=== PATIENT | female | born 1980 | race Hispanic/Latino ===

== ENCOUNTER 2018-02-04 12:01 | Emergency (ER) | payer BC ==
[2018-02-04 12:05] VITALS: BMI 26.7
--- NOTE | 2018-02-04 12:53 | ED PDOC ---
Addendum entered and electronically signed by Helga Valero PA 02/04/18 15:46: Addendum Addendum: 02/04/18 15:46 US : 8 weeks 1 day FHR 138 single live IUP Original Note: HPI: Abdomen Time Seen by Provider: 02/04/18 12:51 Chief Complaint (Nursing): Abdominal Pain Chief Complaint (Provider): vaginal bleeding History Per: Patient (37 y/o female 8 weeks gestational here for bright blood spotting noted today that resolved other course of day. Denies any abdominal pain. Sent by Dr. Sanchez for evaluation.) Past Medical History Reviewed: Historical Data, Nursing Documentation, Vital Signs Vital Signs: Last Vital Signs Temp 98.9 F 02/04/18 12:05 Pulse 88 02/04/18 12:05 Resp 17 02/04/18 12:05 BP 144/94 H 02/04/18 12:05 Pulse Ox 99 02/04/18 12:05 - Family History Family History: States: No Known Family Hx - Allergies Allergies/Adverse Reactions: Allergies Allergy/AdvReac Type Severity Reaction Status Date / Time No Known Allergies Allergy Verified 02/04/18 12:17 Review of Systems ROS Statement: Except As Marked, All Systems Reviewed And Found Negative Physical Exam - Reviewed Nursing Documentation Reviewed: Yes Vital Signs Reviewed: Yes - Physical Exam Appears: Positive for: Well, Non-toxic, No Acute Distress Head Exam: Positive for: ATRAUMATIC, NORMAL INSPECTION, NORMOCEPHALIC Skin: Positive for: Normal Color, Warm, DRY Eye Exam: Positive for: EOMI, Normal appearance, PERRL ENT: Positive for: Normal ENT Inspection Neck: Positive for: Normal, Painless ROM Cardiovascular/Chest: Positive for: Regular Rate, Rhythm Respiratory: Positive for: CNT, Normal Breath Sounds Gastrointestinal/Abdominal: Positive for: Normal Exam, Soft Back: Positive for: Normal Inspection Extremity: Positive for: Normal ROM Neurologic/Psych: Positive for: Alert, Oriented - Laboratory Results Result Diagrams: 02/04/18 13:40 02/04/18 13:40 - ECG O2 Sat by Pulse Oximetry: 99 Disposition - Clinical Impression Clinical Impression: Threatened miscarriage - Patient ED Disposition Is Patient to be Admitted: No - Disposition Disposition: Routine/Home Disposition Time: 15:45 Condition: FAIR Instructions: Threatened Miscarriage (DC)
[2018-02-04 14:07] LABS: BASO % 0.3 % (0.0-2.0); EOS % 0.1 % (0.0-4.0); HEMOGLOBIN 15.5 g/dL (12.0-16.0); LYMPH # 1.1 K/uL (1.0-4.3); LYMPH % 14.8 % (20.0-40.0); MEAN CELL VOLUME 90.9 fl (81.0-99.0); MEAN CORPUSCULAR HEMOGLOBIN 32.1 pg (27.0-31.0); MEAN CORPUSCULAR HGB CONC 35.4 g/dL (33.0-37.0); MEAN PLATELET VOLUME 8.8 fl (7.2-11.7); MONO # 0.5 K/uL (0.0-0.8); MONO % 6.1 % (0.0-10.0); NEUT # 5.8 K/uL (1.8-7.0); NEUT % 78.7 % (50.0-75.0); NRBC % 0.1 % (0.0-0.0); RBC 4.82 Mil/uL (3.80-5.20); RED CELL DISTRIBUTION WIDTH 12.5 % (11.5-14.5); WHITE BLOOD COUNT 7.4 K/uL (4.8-10.8)
[2018-02-04 14:17] LABS: ALB/GLOB RATIO 1.3 (1.0-2.1); ALBUMIN 4.1 g/dL (3.5-5.0); ALT/SGPT 189 U/L (9-52); AST/SGOT 74 U/L (14-36); BLOOD UREA NITROGEN 8 mg/dl (7-17); CALCIUM 9.1 mg/dL (8.4-10.2); GFR NON-AFRICAN AMERICAN > 60
--- NOTE | 2018-02-04 16:01 | US ---
Date of service: 02/04/2018 PROCEDURE: First trimester ultrasound HISTORY: Threatened miscarriage. COMPARISON: None TECHNIQUE: Transvaginal only. Real -time technique with 2D, duplex and color Doppler FINDINGS: LMP: 12/11/2017 Prior examinations from the current : None TECHNIQUE: Real-time 2D imaging, duplex and color Doppler. FINDINGS: Cardiac activity: Present Rate: 138 BPM Measurements: [place] rump length: 1.05 cm Gestational age based on CRL 7 weeks 1 day Gestational age 8 weeks 1 day based on gestational sac measurement 3.19 cm Gestational age derived from LMP: 7 weeks 6 days KRISTINA based on LMP: 09/17/2018 KRISTINA based on biometry: 09/18/2018 Gestational concordance apparent. Yolk sac identified Cervix: No Cervical abnormalities: Negative examination for cervical dilatation or effacement. Closed cervix measuring 3.12 cm Subchorionic hemorrhage: None UTERUS: 0.7 x 7.3 x 9 cm. ADNEXA: Right: Obscured by overlying bowel gas. Left: 1.3 x 1.9 x 2.6 cm. Normal Doppler arterial waveform documented Fluid in the cul-de-sac: IMPRESSION: Seven weeks 5 days live intrauterine gestation. Gestational concordance documented. Limitations of the current examination: Nondiagnostic assessment of the right adnexa obscured by overlying bowel.
[2018-02-04 19:34] VITALS: BP 133/86; PULSE 80; RESP 18; TEMP 98.6; O2SAT 100
== END 2018-02-04 16:00 | disposition home or self-care (01) ==
LOC: H.ER 12:01
DX: O20.0 Threatened abortion (principal); Z3A.08 8 weeks gestation of pregnancy